=== PATIENT | female | born 1980 | race African-American/Black ===

== ENCOUNTER 2016-06-16 08:44 | Emergency (ER) | payer OTHER ==
[~2016-06-16] VITALS: Ht 165.1 cm; Wt 68.2 kg
[2016-06-16 12:19] VITALS: BP 108/64
== END 2016-06-16 12:19 | disposition home or self-care (01) ==
LOC: ED 08:44
DX: J20.9 Acute bronchitis, unspecified (principal); Z79.899 Other long term (current) drug therapy

== ENCOUNTER 2016-11-16 14:44 | Emergency (ER) | payer OTHER ==
[~2016-11-16] VITALS: Ht 167.6 cm; Wt 68.5 kg
[2016-11-16 15:01] VITALS: BP 108/74
== END 2016-11-16 16:21 | disposition home or self-care (01) ==
LOC: ED 14:44
DX: M62.830 Muscle spasm of back (principal); M62.838 Other muscle spasm; V43.52XA Car driver injured in collision with other type car in traffic accident, initial encounter; Y93.89 Activity, other specified; Y99.8 Other external cause status; Y92.89 Other specified places as the place of occurrence of the external cause